=== PATIENT | male | born 1950 | race Caucasian/White ===

== ENCOUNTER 2018-04-26 10:14 | Day surgery (SDC) | payer MEDICARE, BC ==
[2018-04-25 15:38] VITALS: BMI 30.5
[2018-04-26] MEDS ORDERED: Fentanyl 100 MCG/2 ML VIAL ONE (12:31)
[2018-04-26] MEDS ORDERED: Propofol 500 MG/50 ML VIAL ONE (12:31)
[2018-04-26] MEDS ORDERED: Midazolam HCl 2 mg/2 ml Vial ONE (12:31)
--- NOTE | 2018-04-26 13:02 | RAD ---
LUMBAR SPINE THREE VIEWS: Comparison: 03-23-17 History: Status post laminectomy syndrome. FINDINGS: Three views lumbar spine demonstrate five lumbar type vertebral bodies. There are bilateral transpedi cular screws at L4, L5, and S1. No evidence of perihardware lucency. Disc prosthesis at L4-5 and L5-S 1. In the neutral position, there is slight straightening of normal lumbar lordosis in the lower lumb ar spine, likely due to fusion changes. No abnormal motion upon extension or flexion. Mild osteophyte formation at L2-3 and L3-4 without significant loss of disc space height. There does appear to be some mild degenerative change in the distal thoracic spine, not incidentally noted. IMPRESSION: Lumbar fusion changes as detailed above. When compared to the previous exam there is no appreciable c hange. POS: JACQUES
--- NOTE | 2018-04-26 15:28 | MRI ---
MRI LUMBAR SPINE WITH AND WITHOUT CONTRAST: DATE: 04/26/18 HISTORY: 67-year-old male with post laminectomy syndrome, not elsewhere classified, M96.1. COMPARISON: 10/09/16. TECHNIQUE: Multiple sequences obtained in axial and sagittal planes, pre and post IV injection of gadolinium-bas ed contrast agent: 20 mL MultiHance. FINDINGS: There are five lumbar-type vertebrae. Vertebral body heights are maintained. There are interbody james ts at L4-5 and L5-S1, with successful ankylosis between the end plates, and no disc space narrowing. There are bilateral pedicle screws at L4, L5, and S1. The T12-L1, L1-2, L2-3, and L3-4 disc spaces ar e maintained. Alignment is normal. T12-L1: Essentially normal. L1-2: Essentially normal. Conus medullaris terminates at lower L1 level. L2-3: Mild central stenosis. Mild disc bulge. No significant neural foraminal stenosis. L3-4: Mild ligamentum flavum thickening. Mild bilateral degenerative facet changes. Bilateral mild t o moderate neural foraminal stenosis. Mild disc bulge. Mild central spinal canal stenosis. Posterior epidural fat pad. Mild to moderate thecal sac stenosis. L4-5: Generous caliber of spinal canal and thecal sac due to wide laminectomy. No neural foraminal s tenosis. L5-S1: Generous caliber of spinal canal and thecal sac due to wide laminectomy. No neural foraminal stenosis. There is no abnormal, unexpected enhancement. No obvious nerve root impingement at any level. No inte rval change overall. IMPRESSION: 1. Status post posterior lumbar interbody fusion and wide laminectomies at L4-L5-S1. Successful anky losis of the L4-L5-S1 vertebral bodies. 2. No high grade central spinal canal stenosis or high grade neural foraminal stenosis at any level. 3. No interval change since 10/09/16. SILVA Burnham POS: JACQUES
[2018-04-26] MEDS ORDERED: Magnevist 469MG/ML 20 ML VIAL ONE (17:12)
== END 2018-04-26 15:15 | disposition home or self-care (01) ==
LOC: MRI 10:14
PROVIDERS: ATTEND Anesthesiology Pain Medicine
DX: M96.1 Postlaminectomy syndrome, not elsewhere classified (principal); I10 Essential (primary) hypertension; F41.9 Anxiety disorder, unspecified; F32.9 Major depressive disorder, single episode, unspecified; Z98.1 Arthrodesis status; Z87.891 Personal history of nicotine dependence; Z88.2 Allergy status to sulfonamides; Z79.899 Other long term (current) drug therapy; Z98.890 Other specified postprocedural states
CPT/HCPCS: 72100; 72158; 82565; 96374; A9579; J2250; J2704; J3010

== ENCOUNTER 2018-06-07 08:28 | Outpatient (CLI) | payer MEDICARE, BC ==
--- NOTE | 2018-06-07 09:21 | RAD ---
THORACIC SPINE RADIOGRAPHS THREE VIEWS: Indication: History of fall with wedge compression fracture. Comparison: None available. FINDINGS: At approximately the T10 segment, although this is difficult to definitely confirm as this is only se en on the lateral view which incompletely demonstrates the spine, there is a slight area of height lo ss and an obliquely oriented posterior lucency of the vertebral body. This could represent a recent f racture. No significant, associated malalignment. There is moderate multilevel degenerative change th roughout the thoracic spine. Incidental note of ACDF within the lower cervical spine. IMPRESSION: Subtle height loss and obliquely oriented lucency involving low thoracic vertebral body which may rep resent T10 segment. This is incompletely evaluated. In light of the patient's history of recent injur y and pain, recommend dedicated thoracic spine MRI without contrast to further characterize. Code T
== END 2018-06-07 08:29 | disposition home or self-care (01) ==
LOC: BICRAD 08:28
PROVIDERS: ATTEND Anesthesiology Pain Medicine
DX: S22.009A Unspecified fracture of unspecified thoracic vertebra, initial encounter for closed fracture (principal)
CPT/HCPCS: 72072

== ENCOUNTER 2018-11-21 10:31 | Day surgery (SDC) | payer MEDICARE, BC ==
[2018-11-18 09:04] VITALS: BMI 27.2
[2018-11-21] MEDS ORDERED: Ondansetron PF 4 MG/2 ML Vial ONE ×2 (11:20→13:56)
[2018-11-21] MEDS ORDERED: PROPOFOL 200 MG/20 ML VIAL ONE (11:20)
--- NOTE | 2018-11-21 11:31 | RAD ---
Radiograph left hip 2 views: 11/21/2018 HISTORY: 67-year-old male with left hip pain. Preoperative evaluation. FINDINGS: Moderate sclerosis and bony hypertrophy of superior and inferior acetabulum. Hip joint space maintain ed. Small subcapital osteophytes. Femoral head contour maintained. No fracture. Pedicle screws at lower lumbar spine and laminectomy. IMPRESSION: 1. Mild to moderate osteoarthrosis of the left hip. 2. Laminectomy and posterior fusion of lower lumbar spine.
--- NOTE | 2018-11-21 11:33 | RAD ---
Exam: CERVICAL SPINE 5 VIEWS: HISTORY: Preoperative exam. FINDINGS: Predental space is normal. No prevertebral soft tissue swelling. Oblique projections demonstrate significant right neural foraminal narrowing at C3-C4 and C4-C5. Mode rate neural foraminal narrowing at C5-C6. Moderate left foraminal narrowing at C4-C5. There is an anterior fusion plate with transvertebral body screw at C6-C7. Fusion of the C6-C7 disc s pace is suspected. There is degenerative change with mild loss of disc space height at C7-T1. In the neutral position, 1.2 mm of anterolisthesis of C5 upon C6; upon flexion 1.8 mm of anterolisthe sis; upon extension less than 1 mm anterolisthesis. IMPRESSION: 1. Cervical fusion changes as above. 2. Grade 1 anterolisthesis of C5 upon C6. No significant motion upon flexion or extension. Transcribed Date/Time: 11/21/2018 12:01 PM
--- NOTE | 2018-11-21 11:33 | RAD ---
Radiograph right hip 2 views: 11/21/2018 HISTORY: 67-year-old male with right hip pain. Preoperative evaluation. FINDINGS: Hip joint space is maintained. Mild sclerosis of acetabular roof. Moderate sclerosis and osteophytosi s of inferior acetabulum. Femoral head contour maintained. Small subcapital osteophytes. No fracture. Bilateral pedicle screws and laminectomy defects at lower lumbar spine. IMPRESSION: 1. Mild to moderate osteoarthrosis of right hip. 2. Posterior lumbar fusion hardware and laminectomy at lower lumbar spine.
[2018-11-21] MEDS ORDERED: Fentanyl 100 MCG/2 ML VIAL ONE (12:04)
[2018-11-21] MEDS ORDERED: Midazolam HCl 2 mg/2 ml Vial ONE ×2 (12:04→12:28)
[2018-11-21] MEDS ORDERED: Propofol 1,000 MG/100 ML VIAL IV ONE ×2 (12:07→13:03)
[2018-11-21] MEDS ORDERED: Propofol 500 MG/50 ML VIAL ONE (13:03)
--- NOTE | 2018-11-21 13:50 | MRI ---
Exam: MRI cervical spine without contrast HISTORY: Neck and back surgery. Pain.. COMPARISON: 09/19/2016. FINDINGS: Redemonstration of an anterior fusion plate with transvertebral body screw at C6 and C7. There is as sociated metallic susceptibly artifact. Cervical spine vertebral body height is maintained. No fracture. No significant STIR hyperintensity to suggest vertebral body edema or ligamentous injury Visualized brain parenchyma, cervicomedullary junction, cervical cord, and the upper thoracic cord calvillo ve a normal size and signal intensity. C2-C3: No significant central canal stenosis or neural foraminal narrowing. C3-C4: No significant central canal stenosis. Mild to moderate right neural foraminal narrowing due t o uncovertebral hypertrophy. Left neural foramen is patent. C4-C5: Broad-based disc bulge, abutting the thecal sac. No significant central canal stenosis. Modera te right and [id number]-[id number] left foraminal narrowing due to uncovertebral hypertrophy. C5-C6: Generalized disc bulge with a central disc protrusion. There is effacement of the ventral suba rachnoid space and mild deformity of the left hemicord. No cord hyperintensity. Mild central canal stenosis. Bilaterally, neural foramina are patent. C6-C7: No significant central canal stenosis or neural foraminal narrowing. C7-T1: No significant central canal stenosis or neural foraminal narrowing. Minimal central disc prot rusion is noted. IMPRESSION: 1. No evidence of high-grade central canal stenosis. 2. Redemonstration of anterior fusion at C6 and C7. 3. Varying degrees of neural foraminal narrowing as described above. There is moderate right and mild to moderate left foraminal narrowing at C4-5 due to uncovertebral hypertrophy Transcribed Date/Time: 11/21/2018 1:59 PM
--- NOTE | 2018-11-21 13:53 | MRI ---
Exam: MRI THORACIC SPINE WITHOUT CONTRAST: HISTORY: Back pain. Previous surgery. COMPARISON: None FINDINGS: Appropriate T1 marrow signal intensity of the thoracic vertebra. Vertebral body height is maintained. No fracture. Probable small osseous hemangioma at T7. No significant STIR hyperintensity to suggest vertebral body edema or ligamentous injury. Visualized mediastinal structures are unremarkable. There are bilateral pleural effusion with adjacen t lung consolidation which may represent atelectasis, aspiration or pneumonia The thoracic cord has a normal size and signal intensity. No cord malacia. No cord expansion. Conus m edullaris terminates at the superior aspect of L1. Throughout the thoracic spine, there is no significant central canal stenosis. The neural foramina ar e patent. Sagittal T2-weighted images demonstrate minimal indentation upon the ventral thecal sac at the T2-T3 level. This is difficult to appreciate on the axial images. IMPRESSION: Unremarkable noncontrast thoracic spine MRI. Transcribed Date/Time: 11/21/2018 2:13 PM
[2018-11-21] MEDS ORDERED: Famotidine/PF 20 mg/2ml Vial ONE (13:56)
--- NOTE | 2018-11-21 14:05 | MRI ---
MRI lumbar spine noncontrast: HISTORY: Previous back surgery. Lumbar spine pain. COMPARISON: 04/26/2018. FINDINGS: Appropriate T1 marrow signal intensity of the lumbar vertebra. Lumbar spine vertebral body height is maintained. No fracture. No significant STIR hyperintensity to suggest vertebral body edema or ligamentous injury. There is metallic susceptibility artifact secondary to bilateral transpedicular s crews at L4, L5 and S1. Disc prosthesis at L4-L5 and L5-S1. Appropriate signal intensity of the paraspinal muscles. Appropriate signal intensity of the visualized solid organs. Conus medullaris terminates at the upper aspect of L1. T12-L1:No significant central canal stenosis. Neural foramina are patent. L1-L2:Adequate disc hydration. No significant central canal stenosis. Neural foramina are patent. L2-L3:Adequate disc hydration. Minimal left and right paracentral disc bulges along with ligament fla vum thickening and facet hypertrophy. Mild central canal stenosis. Bilaterally, neural foramina are patent. L3-L4:Adequate disc hydration. Generalized disc bulge, ligament flavum thickening and facet hypertrop hy result in mild central canal stenosis. Bilaterally, neural foramina are patent L4-L5:Posterior laminectomy defect. No significant central canal stenosis. Right neural foramen is pa tent. Mild left foraminal narrowing. L5-S1:Posterior laminectomy defect. No significant central canal stenosis. Bilaterally, neural forami na are patent. IMPRESSION: 1. Stable postsurgical change involving the lower lumbar spine. 2. No significant central canal stenosis or foraminal narrowing. 3. No significant interval change since April 26, 2018. Transcribed Date/Time: 11/21/2018 2:15 PM
== END 2018-11-21 15:10 | disposition home or self-care (01) ==
LOC: SDC/OP 10:31
PROVIDERS: ATTEND Anesthesiology Pain Medicine
DX: M48.02 Spinal stenosis, cervical region (principal); M50.222 Other cervical disc displacement at C5-C6 level; M48.061 Spinal stenosis, lumbar region without neurogenic claudication; M16.11 Unilateral primary osteoarthritis, right hip; I10 Essential (primary) hypertension; F41.9 Anxiety disorder, unspecified; Z98.1 Arthrodesis status; Z87.891 Personal history of nicotine dependence; Z88.1 Allergy status to other antibiotic agents; Z88.8 Allergy status to other drugs, medicaments and biological substances; Z88.2 Allergy status to sulfonamides
CPT/HCPCS: 72050; 72141; 72146; 72148; J2250; J2405; J2704; J3010; S0028

== ENCOUNTER 2019-01-23 10:20 | Day surgery (SDC) | payer MEDICARE, BC ==
[2019-01-20 13:39] VITALS: BMI 28.7
[2019-01-23] MEDS ORDERED: Gadobenate Dimeglumine 529 MG/1 ML (20ML VIAL) ONE (10:54)
[2019-01-23] MEDS ORDERED: Propofol 1,000 MG/100 ML VIAL IV ONE (12:18)
[2019-01-23] MEDS ORDERED: Fentanyl 100 MCG/2 ML VIAL ONE (12:18)
[2019-01-23] MEDS ORDERED: Midazolam HCl 2 mg/2 ml Vial ONE (12:18)
--- NOTE | 2019-01-23 13:30 | MRI ---
Exam: Brain MRI with and without contrast HISTORY: Dementia COMPARISON: None FINDINGS: Gradient echo sequence: No hemorrhage Calvarium: Appropriate T1 marrow signal intensity Midline brain parenchyma: Unremarkable Cerebrum:No parenchymal mass, mass effect or midline shift. Age-appropriate brain volume. Cortical gr ay-white matter differentiation preserved. Ventricles: No evidence of hydrocephalus. Sinuses and mastoid air cells: Mild mucosal disease of the visualized paranasal sinuses. Adequate mas toid air cell aeration. Diffusion: Central arterial flow is maintained. Absent restricted diffusion. Postcontrast images: No pathologic enhancement of the brain parenchyma. Incidental developmental veno us anomaly is noted in the left frontal lobe. IMPRESSION: Unremarkable pre and postcontrast brain MRI.
[2019-01-23] MEDS ORDERED: PROPOFOL 200 MG/20 ML VIAL ONE (13:52)
== END 2019-01-23 14:45 | disposition home or self-care (01) ==
LOC: SDC/OP 10:20
DX: F03.90 Unspecified dementia, unspecified severity, without behavioral disturbance, psychotic disturbance, mood disturbance, and anxiety (principal); G25.81 Restless legs syndrome; G62.9 Polyneuropathy, unspecified; I10 Essential (primary) hypertension; M48.07 Spinal stenosis, lumbosacral region; M19.90 Unspecified osteoarthritis, unspecified site; Z79.899 Other long term (current) drug therapy; Z88.2 Allergy status to sulfonamides
CPT/HCPCS: 70553; 82565; J2250; J2704; J3010

== ENCOUNTER 2019-05-15 08:17 | Day surgery (SDC) | payer MEDICARE, BC ==
[2019-05-12 10:05] VITALS: BMI 31.9
[2019-05-15] MEDS ORDERED: Propofol 1,000 MG/100 ML VIAL IV ONE (09:18)
[2019-05-15] MEDS ORDERED: PROPOFOL 20 ML ONE (09:18)
--- NOTE | 2019-05-15 10:55 | MRI ---
EXAM: MRI of the brain without and with contrast HISTORY: Episodes of difficulty walking and heaviness. Seizures. COMPARISON: 01/23/2019 TECHNIQUE: Multiplanar multisequence MR images were obtained of the brain without and with IV contras t. FINDINGS: The brain demonstrates normal signal intensity on all obtained sequences. No restricted diffusion. No abnormal enhancement. No hydronephrosis. No extra-axial fluid collection or intracranial hemorrhage. Thin cuts through the internal auditory canals shows a normal appearance of the 7th and 8th nerves. The cochlea and semicircular canals are symmetric. The expected flow voids are present. Corpus callosum, pituitary, and craniocervical junction are within normal limits. The calvarium and overlying soft tissues are unremarkable. Mild mucosal thickening is seen in the paranasal sinuses. IMPRESSION: No evidence of acute intracranial abnormality.
== END 2019-05-15 12:05 | disposition home or self-care (01) ==
LOC: SDC/OP 08:17
DX: R26.2 Difficulty in walking, not elsewhere classified (principal); R56.9 Unspecified convulsions; Z79.899 Other long term (current) drug therapy; Z88.2 Allergy status to sulfonamides
CPT/HCPCS: 36415; 70553; 82565; J2704

== ENCOUNTER 2019-05-29 10:39 | Day surgery (SDC) | payer MEDICARE, BC ==
[2019-05-26 16:16] VITALS: BMI 30.1
[2019-05-29 11:37] LABS: Anion Gap 10 mmol/L (10-20); BUN (Urea Nitrogen) 16 mg/dL (8.4-25.7); Calc. Creatinine Clearance 81 mL/min (70-130); Carbon Dioxide 30 mmol/L (23-31); Chloride 106 mmol/L (98-107); Estimated GFR-MDRD 60; Glucose 111 mg/dL (80-115); Potassium 3.9 mmol/L (3.5-5.1); Sodium 142 mmol/L (136-145)
[2019-05-29] MEDS ORDERED: Fentanyl 100 MCG/2 ML VIAL ONE ×3 (12:23→15:01)
[2019-05-29] MEDS ORDERED: Midazolam HCl 2 mg/2 ml Vial ONE (12:23)
[2019-05-29] MEDS ORDERED: Propofol 1,000 MG/100 ML VIAL IV ONE (12:24)
[2019-05-29] MEDS ORDERED: HYDROmorphone 0.5 MG/0.5 ML SYRINGE ONE ×2 (12:49→13:17)
--- NOTE | 2019-05-29 16:27 | MRI ---
EXAM: RIGHT HIP MRI WITHOUT IV CONTRAST: History: Post laminectomy syndrome, low back pain. Technique: Multiplanar, multisequence MRI examination of the right hip is performed. FINDINGS: There is minimal fat stranding in both right and left trochanteric bursal regions. No evidence for ab normal marrow signal to suggest avascular necrosis, fracture, or acute stress injury. Gluteus minimus and gluteus medius tendon insertion regions appear intact. Mild increased signal associated with the lateral hip labrum and possibly some focal fraying or degenerative type tear. No evidence for acute muscle or tendon injury. IMPRESSION: Subtle increased signal in both right and left trochanteric bursal regions, nonspecific. Mild increas ed signal in the lateral hip labral region, possibly some focal fraying or degenerative type tear. POS: TPC
--- NOTE | 2019-05-29 16:35 | MRI ---
LEFT HIP MRI WITHOUT IV CONTRAST: History: Left hip pain. FINDINGS: Multiplanar, multisequence MR examination of the left hip was performed. There is some fluid within the sub-gluteus minimus and sub-gluteus medius bursal regions, possibly so me mild bursitis. Minimal increased signal in the trochanteric bursa on the left side. Possible minim al low grade partial signal tearing of the gluteus minimus and anterior gluteus medius tendon inserti on regions, but no complete full thickness tear. No evidence for abnormal marrow signal. Mild hip sayda nt arthrosis. No evidence for avascular necrosis, femoral neck fracture, or acute stress injury. IMPRESSION: Minimal increased signal at the gluteus minimum and gluteus medius anterior fiber insertions with brice e minimal fluid in the sub-gluteus medius and sub-gluteus minimus bursa, evidence for tendinopathy an d possible low grade partial thickness age indeterminate tearing. No abnormal marrow signal to sugges t avascular necrosis or other acute process. Slight blunting and irregularity of the left hip labrum, possibly related to some fraying or minimal degenerative tearing. Minimal fluid density/fat strandin g in the trochanteric bursa. POS: TPC
--- NOTE | 2019-05-31 13:37 | EKG ---
Test Reason : PREOP MRI Blood Pressure : / mmHG Vent. Rate : 069 BPM Atrial Rate : 069 BPM P-R Int : 132 ms QRS Dur : 104 ms QT Int : 400 ms P-R-T Axes : 066 015 044 degrees QTc Int : 428 ms Normal sinus rhythm Normal ECG When compared with ECG of 20-JAN-2011 13:07, No significant change was found Confirmed by RADHA PITT (2) on 05/31/2019 1:37:12 PM Referred By: MACO Confirmed By:RADHA PITT
== END 2019-05-29 16:07 | disposition home or self-care (01) ==
LOC: SDC/OP 10:39 → EDSTATUS 12:00 → SDC/OP 16:07
PROVIDERS: ATTEND Anesthesiology Pain Medicine
DX: M96.1 Postlaminectomy syndrome, not elsewhere classified (principal); M51.16 Intervertebral disc disorders with radiculopathy, lumbar region; I10 Essential (primary) hypertension; F41.9 Anxiety disorder, unspecified; Z79.899 Other long term (current) drug therapy; Z87.820 Personal history of traumatic brain injury; Z87.891 Personal history of nicotine dependence; Z88.2 Allergy status to sulfonamides; Z88.1 Allergy status to other antibiotic agents; Z88.8 Allergy status to other drugs, medicaments and biological substances; Z98.1 Arthrodesis status
CPT/HCPCS: 36415; 80048; 93005; 93010; J1170; J2250; J2704; J3010

== ENCOUNTER 2019-06-13 09:31 | Day surgery (SDC) | payer MEDICARE, BC ==
[2019-06-12 15:54] VITALS: BMI 30.1
--- NOTE | 2019-06-13 11:27 | RAD ---
EXAM: XR Lumbar Punct Only W/Fluoro PROVIDED CLINICAL HISTORY: Progressive difficulty in walking, seizures. Unsteady gait. COMPARISON: None TECHNIQUE: After informed consent was obtained, the patient was placed on the fluoroscopy table in the prone pos ition. An area overlying the L4-5 level was marked and then meticulously prepped and draped in usual sterile fashion. The skin and subcutaneous tissues were infiltrated with buffered 1% lidocaine for local anesthesia. A 22-gauge spinal needle was advanced into the thecal sac. The inner stylette was removed with a return of clear cerebral spinal fluid. An opening pressure of 21 cm of water was o btained. Approximately 10.75 mL of clear cerebral spinal fluid was collected. A closing pressure of 19 cm of water was then obtained. The inner stylette was replaced, and the needle was removed. Hemostasis was achieved with direct pres sure. The patient tolerated the procedure well and without immediate complication. Patient was transported to radiology nurses holding area for further monitoring prior to discharge. Fluoroscopy: Time-0.2 minutes Dose-52 uGy meter squared IMPRESSION: 1. Technically successful lumbar puncture at the L4-5 level with a return of clear cerebral spinal fl uid. Approximately 10.75 mL of clear cerebral spinal fluid was collected. 2. Opening pressure of 21 cm of water and closing pressure of 19 cm of water was obtained.
[2019-06-13 12:05] LABS: CSF Source CSF; Clarity Clear (Clear); Tube # 1
[2019-06-13 12:07] LABS: Color Of CSF Supernatant COLORLESS (Colorless); Tube # 2; Unspun CSF Color COLORLESS (Colorless)
[2019-06-13 12:22] LABS: CSF, Glucose 60 mg/dl (40-70); CSF, Protein 51 mg/dL (15-40)
[2019-06-13 13:11] LABS: CSF Source CSF; Clarity Clear (Clear); Tube # 4
[2019-06-15 16:09] LABS: Myelin Basic Protein, CSF 3.6 ng/mL (0.0-5.4)
== END 2019-06-13 11:35 | disposition home or self-care (01) ==
LOC: RAD 09:31
PROC: 009U3ZX Drainage of Spinal Canal, Percutaneous Approach, Diagnostic (ICD-10-PCS; principal; 2019-06-13)
DX: R26.81 Unsteadiness on feet (principal); R56.9 Unspecified convulsions; I10 Essential (primary) hypertension; I25.10 Atherosclerotic heart disease of native coronary artery without angina pectoris; F41.9 Anxiety disorder, unspecified; J44.9 Chronic obstructive pulmonary disease, unspecified; Z87.820 Personal history of traumatic brain injury; Z79.899 Other long term (current) drug therapy; Z88.2 Allergy status to sulfonamides; Z98.1 Arthrodesis status
CPT/HCPCS: 62270; 82945; 83873; 83916; 84157; 87070; 87205; 89051

== ENCOUNTER 2022-03-20 23:30 | Observation (INO) | payer MEDICARE, BC ==
[2022-03-20 23:59] LABS: #Eosinphils 0.3 thou/uL (0.0-0.7); #Lymphocytes 1.5 thou/uL (1.20-3.40); #Monocytes 0.6 thou/uL (0.11-0.59); #Neutrophils 3.5 thou/uL (1.40-6.50); %Basophils 0.4 % (0.0-1.0); %Eosinophils 4.6 % (0.0-10.0); %Lymphocytes 24.9 % (21.0-51.0); %Monocytes 10.9 % (0.0-10.0); %Neutrophils 59.2 % (42.0-75.0); Hemoglobin 12.1 g/dL (14.0-18.0); Mean Corpuscular HGB CONC 34.1 g/dL (32.0-36.0); Mean Corpuscular Hemoglobin 31.6 pg (27.0-31.0); Mean Corpuscular Volume 92.5 fl (78.0-98.0); Mean Platelet Volume 7.8 fL (7.4-10.4); Platelet Count 162 thou/uL (130-400); RBC Distribution Width 11.5 % (11.5-14.5); Red Blood Cell (RBC) Count 3.83 mill/uL (4.70-6.10); White Blood Cell (WBC) Count 5.9 thou/uL (4.8-10.8)
[2022-03-21] MEDS ORDERED: cefTRIAXone\\ROCEPHIN 1 GM VIAL ONE (00:15)
[2022-03-21 00:20] LABS: ALT (SGPT) 14 U/L (8-55); AST (SGOT) 17 U/L (5-34); Albumin 3.8 g/dL (3.4-4.8); Alkaline Phosphatase 51 U/L (40-110); Anion Gap 13 mmol/L (10-20); BUN (Urea Nitrogen) 26 mg/dL (8.4-25.7); Bilirubin, Total 0.5 mg/dL (0.2-1.2); Calc. Creatinine Clearance 0 mL/min (70-130); Calcium 8.8 mg/dL (7.8-10.44); Carbon Dioxide 24 mmol/L (23-31); Chloride 107 mmol/L (98-107); Estimated GFR 47; Globulin 2.3 g/dL (2.4-3.5); Glucose 113 mg/dL (80-115); Lipase 115 U/L (8-78); Magnesium 1.9 mg/dL (1.6-2.6); Potassium 3.6 mmol/L (3.5-5.1); Protein, Total 6.1 g/dL (5.8-8.1); Sodium 140 mmol/L (136-145)
[2022-03-21 00:29] LABS: INR-International Normal Ratio 1.1; Prothrombin Time 14.7 sec (12.0-14.7)
[2022-03-21 00:30] LABS: D-Dimer Test 0.37 *mcg/mL (0.27-0.43)
[2022-03-21 02:16] LABS: Bilirubin Negative (Negative); Blood, Urine Negative (Negative); Clarity Clear (Clear); Glucose, Urine (Dipstick) Normal (Negative); Ketone, Urine Negative (Negative); Leukocyte Negative Leu/uL (Negative); Nitrite Negative (Negative); Protein, Urine (Dipstick) 20 mg/dL (Neg-Trace); Specific Gravity, Urine 1.021 (1.002-1.036); Urobilinogen Normal mg/dL (Less than 2); pH, Urine 5.5 (5.0-9.0)
[2022-03-21] MEDS ORDERED: Ondansetron PF 4 MG/2 ML Vial IVP PRN (03:32)
[2022-03-21] MEDS ORDERED: Acetaminophen 325 MG TAB PO PRN (03:32)
[2022-03-21] MEDS ORDERED: Sodium Chloride 0.9% 1,000 ML IV SCH ×2 (03:45→08:45)
[2022-03-21 03:46] LABS: Acetaminophen Less than 10.0 mcg/mL (10.0-30.0); Alcohol 24 mg/dL (Less than 10); Salicylate Less than 8.0 mg/dL (15.0-30.0)
[2022-03-21 03:46] LABS: Amphetamine Not Detected (NotDetected); Barbiturates Screen Not Detected (NotDetected); Benzodiazepine Screen Not Detected (NotDetected); Cocaine Metabolite Screen Not Detected (NotDetected); Methadone Not Detected (NotDetected); Methamphetamine Not Detected (NotDetected); Opiate Screen Not Detected (NotDetected); Oxycodone Screen Not Detected (NotDetected); Phencyclidine (PCP) Not Detected (NotDetected); THC/Cannabinoid Screen Not Detected (NotDetected); Tricyclic Screen Not Detected (NotDetected)
[2022-03-21 05:15] VITALS: BMI 34.0
[2022-03-21] MEDS ORDERED: Non-Formulary Item 1 EACH (Olmesartan/Hydrochlorothiazide [Olmesartan-Hctz 20-12.5 Mg Tab PO SCH (09:00)
[2022-03-21] MEDS ORDERED: Buprenorphine Hcl [Belbuca] 900 MCG Film SL SCH (09:00)
[2022-03-21] MEDS ORDERED: OLMESARTAN HCTZ PO SCH (09:00)
[2022-03-21] MEDS ORDERED: BUPRENORPHINE HCL 900 MCG BC SCH (09:00)
[2022-03-21 09:28] LABS: Anion Gap 12 mmol/L (10-20); BUN (Urea Nitrogen) 22 mg/dL (8.4-25.7); Calc. Creatinine Clearance 75 mL/min (70-130); Calcium 9.4 mg/dL (7.8-10.44); Carbon Dioxide 25 mmol/L (23-31); Chloride 107 mmol/L (98-107); Estimated GFR 59; Glucose 92 mg/dL (80-115); Potassium 3.9 mmol/L (3.5-5.1); Sodium 140 mmol/L (136-145)
[2022-03-21 09:29] LABS: Magnesium 1.9 mg/dL (1.6-2.6)
[2022-03-21 11:45] VITALS: BP 138/65; TEMP 98.4
== END 2022-03-21 12:55 | disposition home or self-care (01) ==
LOC: ERS 23:30 → 2SW 03-21 03:17
PROVIDERS: ADMIT Internal Medicine; ATTEND Nurse Practitioner Acute Care
DX: R55 Syncope and collapse (principal); R00.1 Bradycardia, unspecified; N17.9 Acute kidney failure, unspecified; I10 Essential (primary) hypertension; G89.29 Other chronic pain; M54.9 Dorsalgia, unspecified; G62.9 Polyneuropathy, unspecified; G47.00 Insomnia, unspecified; I08.8 Other rheumatic multiple valve diseases; Z87.891 Personal history of nicotine dependence; Z79.899 Other long term (current) drug therapy; Z88.1 Allergy status to other antibiotic agents; Z88.2 Allergy status to sulfonamides
CPT/HCPCS: 71045; 80048; 80053; 80306; 80307; 81003; 83690; 83735 ×2; 83880; 84443; 84484; 85025; 85379; 85610; 85730; 87040; 87086; 93005; 93306; G0378 ×2; 36415; 96361; 96374; J0696

== ENCOUNTER 2023-05-07 14:11 | Outpatient (CLI) | payer MEDICARE, BC ==
[2023-05-07 15:55] LABS: #Eosinphils 0.3 10x3/uL (0.0-0.5); #Monocytes 0.5 10x3/uL (0.0-1.1); #Neutrophils 4.1 10x3/uL (1.5-8.4); %Basophils 0.6 % (0.0-2.0); %Eosinophils 4.5 % (0.0-6.0); %Lymphocytes 20.5 % (18.0-47.0); %Monocytes 7.6 % (0.0-10.0); %Neutrophils 66.6 % (40.0-75.0); Hematocrit 41.4 % (38.8-50.0); Hemoglobin 14.2 g/dL (13.5-17.5); Mean Corpuscular HGB CONC 34.3 g/dL (32.0-36.0); Mean Corpuscular Hemoglobin 31.1 pg (27.0-33.0); Mean Corpuscular Volume 90.6 fl (81.2-95.1); Mean Platelet Volume 10.2 fl (7.4-10.4); Platelet Count 215 10x3/uL (150-450); RBC Distribution Width 11.9 % (11.5-14.5); Red Blood Cell (RBC) Count 4.57 10x6/uL (4.32-5.72); White Blood Cell (WBC) Count 6.2 10x3/uL (3.5-10.5)
[2023-05-07 16:11] LABS: Anion Gap 14 mmol/L (10-20); BUN (Urea Nitrogen) 16 mg/dL (8.4-25.7); Calc. Creatinine Clearance 0 mL/min (70-130); Calcium 10.2 mg/dL (7.8-10.44); Carbon Dioxide 27 mmol/L (23-31); Chloride 104 mmol/L (98-107); Estimated GFR 58; Glucose 110 mg/dL (80-115); Potassium 4.1 mmol/L (3.5-5.1); Sodium 141 mmol/L (136-145)
== END 2023-05-07 14:12 | disposition home or self-care (01) ==
LOC: LABBT 14:11
PROVIDERS: ATTEND Surgery
DX: Z01.818 Encounter for other preprocedural examination (principal)
CPT/HCPCS: 80048; 85025; 93005; 93010